=== PATIENT | male | born 1930 | race Caucasian/White ===

== ENCOUNTER 2017-08-31 01:07 | Emergency (ER) | payer MEDICARE ==
[~2017-08-31] VITALS: Ht 167.6 cm; Wt 64.0 kg
[2017-08-31 01:13] VITALS: BP 124/67; Ht 167.6 cm; Wt 64.0 kg
== END 2017-08-31 02:46 | disposition left against medical advice (07) ==
LOC: ED 01:07
DX: Z53.21 Procedure and treatment not carried out due to patient leaving prior to being seen by health care provider (principal)